=== PATIENT | female | born 1960 | race Caucasian/White ===

== ENCOUNTER 2016-07-26 13:16 | Emergency (ER) | payer OTHER ==
[~2016-07-26] VITALS: Ht 162.6 cm; Wt 59.0 kg
[2016-07-26 13:18] VITALS: BP 129/68
[2016-07-26] MEDS ORDERED: NOHOMEMEDICATIONS (13:21)
[2016-07-26] MEDS ORDERED: PREDNISONE 20 M20 MG PO (14:00)
[2016-07-26] MEDS ORDERED: HYDROCODONE-AP1 EAC6 PO (14:00)
== END 2016-07-26 14:07 | disposition home or self-care (01) ==
LOC: ER 13:16
DX: B02.9 Zoster without complications (principal)

== ENCOUNTER 2017-01-23 14:57 | Emergency (ER) | payer OTHER ==
[~2017-01-23] VITALS: Ht 162.6 cm; Wt 59.0 kg
[~2017-01-23 14:57] MED LIST: HYDROCODONE-AP1 EAC6 PO; NOHOMEMEDICATIONS; PREDNISONE 20 M20 MG PO
[2017-01-23 15:24] LABS: ABSOLUTE NEUTROPHILS 7.4 thou/uL (1.4-8.2); BASOPHILS 0.3 % (0.0-2.0); EOSINOPHILS 0.8 % (0.0-3.0); HEMATOCRIT 42.2 % (37.0-47.0); HEMOGLOBIN 14.7 gm/dL (12.0-15.0); LYMPHOCYTES 17.1 % (24.0-44.0); MCH 32.6 pg (26.0-34.0); MCHC 34.9 g/dL (28.0-37.0); MCV 93.4 fL (80.0-100.0); MONOCYTES 4.7 % (1.0-8.0); PLATELET COUNT 336 thou/uL (150-400); POLYS 77.1 % (36.0-66.0); RBC 4.51 mil/uL (4.20-5.00); WBC 9.6 thou/uL (4.0-11.0)
[2017-01-23 15:25] LABS: MANUAL DIFF NO
[2017-01-23] MEDS ORDERED: ZOFRAN ODT4 MG PO (15:25)
[2017-01-23] MEDS ORDERED: PHENERGAN 25 MG25 M1 PO (15:25)
[2017-01-23] MEDS ORDERED: PROMS25 WY RECTAL (15:25)
[2017-01-23 15:30] LABS: CALCIUM 9.7 mg/dL (8.5-10.1); CREATININE 0.9 mg/dL (0.6-1.0)
[2017-01-23 15:34] LABS: ALBUMIN 4.4 g/dL (3.4-5.0); DIRECT BILIRUBIN 0.1 mg/dL (<0.1-0.3); TOTAL BILIRUBIN 0.5 mg/dL (<0.1-1.0)
[2017-01-23] MEDS ORDERED: POTASSIUM20 PO (16:03)
[2017-01-23 16:23] VITALS: BP 110/63
== END 2017-01-23 16:30 | disposition home or self-care (01) ==
LOC: ER 14:57
PROVIDERS: Emergency Medicine
DX: R11.2 Nausea with vomiting, unspecified (principal); E87.6 Hypokalemia; R10.9 Unspecified abdominal pain; F10.99 Alcohol use, unspecified with unspecified alcohol-induced disorder